=== PATIENT | male | born 1945 | race Caucasian/White ===

== ENCOUNTER 2022-01-27 15:51 | Emergency (ER) | payer OTHER ==
[~2022-01-27 15:51] MED LIST: MACROBID100 MG PO
[2022-01-27 17:01] LABS: BASOPHIL 0.8 % (0-2); EOSINOPHIL 2.4 % (0-7); HCT 34.1 % (42.0-52.0); LYMPHOCYTE 25.9 % (15-48); MCHC 35.2 g/dL (32.0-36.0); MCV 93.7 fL (78.0-100.0); MONOCYTE 5.3 % (0-12); MPV 11.3 fL (6.0-9.5); NEUTROPHIL 65.3 % (41-80); NRBC 0; PLT 221 K/uL (150-400); RBC 3.64 M/uL (4.70-6.00); WBC 10.1 K/uL (4.0-10.5)
[2022-01-27 17:20] LABS: LACTIC ACID 1.6 mmol/L (0.4-1.9)
[2022-01-27 17:42] LABS: ALBUMIN 3.9 g/dL (3.4-5.0); BILIRUBIN - TOTAL 0.8 mg/dL (0.2-1.0); BUN/CREAT RATIO (CALC) 22.8 RATIO; CREATININE 1.45 mg/dL (0.67-1.17); POTASSIUM 3.8 mmol/L (3.5-5.1); TOTAL PROTEIN 6.9 g/dL (6.4-8.2)
[2022-01-27 18:31] LABS: CORONAVIRUS 2019 SARS-COV-2 NEGATIVE (NEGATIVE); INFLUENZA A NAA NEGATIVE (NEGATIVE)
[2022-01-27 20:29] LABS: BILIRUBIN 1+ mg/dL (NEGATIVE); BLOOD 3+ Ery/uL (NEGATIVE); CLARITY CLEAR (CLEAR); COLOR YELLOW (YELLOW); GLUCOSE (U) NORMAL (NORMAL); LEUKOCYTES TRACE Leu/uL (NEGATIVE); NITRITE NEGATIVE (NEGATIVE); PROTEIN 1+ mg/dL (NEGATIVE); SPECIFIC GRAVITY >=1.030 (1.001-1.030); UROBILINOGEN 0.2 mg/dL (0.2-1.0); pH 5.5 (5.0-9.0)
[2022-01-27 20:43] LABS: BACTERIA 1+; URINARY RBC TNTC
== END 2022-01-28 02:55 | disposition other institution (70) ==
LOC: FER 15:51
PROVIDERS: Emergency Medicine
DX: N39.0 Urinary tract infection, site not specified (principal); R40.1 Stupor; F17.210 Nicotine dependence, cigarettes, uncomplicated; Z20.822 Contact with and (suspected) exposure to COVID-19; Z28.310 Unvaccinated for COVID-19
CPT/HCPCS: 36415; 36600; 70450; 71250; 71275; 80053; 81001; 82140; 82803; 83540; 83605; 83690; 84439; 85025; 85379; 87040; 87088; 93005; J0696; J7030; Q9967; U0002